=== PATIENT | female | born 1985 | race African-American/Black ===

== ENCOUNTER 2017-09-30 20:34 | Emergency (ER) | payer MEDICAID ==
[~2017-09-30] VITALS: Ht 160 cm; Wt 77.1 kg
[2017-09-30 20:40] VITALS: BP 132/93
[2017-09-30] MEDS ORDERED: ALBUTEROL FS 2.5 MG/3 ML VIAL.NEB NEB ONE (21:00)
[2017-09-30] MEDS ORDERED: IPRATROPIUM NEB FS 0.5 MG/2.5 ML AMPUL.NEB NEB ONE (21:00)
[2017-09-30] MEDS ORDERED: predniSONE 20 MG TABLET PO ONE (21:00)
[2017-09-30] MEDS ORDERED: predniSONE 20 MG TABLET ONE (21:29)
[2017-09-30] MEDS ORDERED: IPRATROPIUM NEB FS 0.5 MG/2.5 ML AMPUL.NEB ONE (21:34)
[2017-09-30] MEDS ORDERED: ALBUTEROL FS 2.5 MG/3 ML VIAL.NEB ONE (21:34)
== END 2017-09-30 22:04 | disposition home or self-care (01) ==
LOC: ER 20:35
DX: J45.901 Unspecified asthma with (acute) exacerbation (principal)
CPT/HCPCS: 94640 ×2; 99284; A4606; J7512; Z7610